=== PATIENT | female | born 1950 | race Caucasian/White ===

== ENCOUNTER 2017-12-26 15:20 | Inpatient (IN) | payer MEDICAID, OTHER ==
[~2017-12-26] VITALS: Ht 165.1 cm; Wt 92.1 kg
[2017-12-26 15:24] VITALS: BP 132/60
[2017-12-26] MEDS ORDERED: NACL 0.9% 1,000 ML IV SCH (16:38)
[2017-12-26] MEDS ORDERED: fentaNYL 0.05 MG/ML VIAL IVP ONE ×2 (16:40→18:45)
[2017-12-26] MEDS ORDERED: ONDANSETRON 4 MG/2 ML VIAL IVP ONE (16:40)
[2017-12-26 18:22] LABS: HEMOGLOBIN 8.3 g/dL (12.0-16.0); MEAN CORPUSCULAR HEMOGLOBIN 27 pg (27-31); MEAN CORPUSCULAR HGB CONC 32 g/dL (33-37); MEAN CORPUSCULAR VOLUME 84.5 fL (80-94); PLATELET COUNT (AUTO) 48 K/uL (140-450); RED BLOOD CELL COUNT(AUTO) 3.08 MIL/uL (4.20-5.40); RED CELL DISTRIBUTION WIDTH 19.8 % (11.6-13.7)
[2017-12-26] MEDS ORDERED: SYN.1 PO (18:22)
[2017-12-26] MEDS ORDERED: FERR325E14 PO (18:23)
[2017-12-26] MEDS ORDERED: ALEN70TA52 PO (18:24)
[2017-12-26] MEDS ORDERED: POTA25TE38 PO (18:28)
[2017-12-26] MEDS ORDERED: FURO-570 PO (18:28)
[2017-12-26] MEDS ORDERED: [UNRECOGNIZED DRUG - CODE] PO (18:29)
[2017-12-26] MEDS ORDERED: IBUP-2213 PO (18:31)
[2017-12-26 18:33] LABS: ALBUMIN 2.1 g/dL (3.4-5.0); ANION GAP 13.2 (8-16); CARBON DIOXIDE 19.2 mmol/L (21-32); CREATININE 0.5 mg/dL (0.6-1.3); TOTAL BILIRUBIN 0.3 mg/dL (0.0-1.0)
[2017-12-26 18:35] LABS: POTASSIUM 2.4 mmol/L (3.5-5.1)
[2017-12-26 18:40] LABS: PROTHROMBIN TIME 13.2 secs (10.8-13.4)
[2017-12-26] MEDS ORDERED: NACL 0.9% 1,000 ML IV ONE (18:40)
[2017-12-26] MEDS ORDERED: KCL 20 MEQ/WATER INJ PREMIX 100 ML IV ONE (18:40)
[2017-12-26] MEDS ORDERED: CALCIUM GLUCONATE 10% 1000 MG/10 ML VIAL IVP ONE (18:40)
[2017-12-26] MEDS ORDERED: MAG SULF 2000 MG/WATER PREMIX 50 ML IV ONE (18:40)
[2017-12-26 18:42] LABS: LYMPHOCYTES % (MANUAL) 11 % (20-46); MONOCYTES % (MANUAL) 6 % (5-12)
[2017-12-26 18:53] LABS: APPEARANCE,URINE CLOUDY (CLEAR); BILIRUBIN,URINE 1+ (NEGATIVE); BLOOD, URINE NEGATIVE (NEGATIVE); COLOR,URINE YELLOW (YELLOW); LEUKOCYTE ESTERASE ,URINE 2+ (NEGATIVE); NITRITE, URINE NEGATIVE (NEGATIVE); UGLUCOSE NEGATIVE (NEGATIVE)
[2017-12-26 19:09] LABS: RBC,URINE 0-5 (RARE) /HPF (0-5)
[2017-12-26 19:10] LABS: WBC,URINE 20-60 /HPF (0-5)
[2017-12-26] MEDS ORDERED: LEVOFLOXACIN 500 MG/D5W PREMIX 100 ML IV ONE (19:25)
[2017-12-26] MEDS ORDERED: ACETAMINOPHEN 325 MG TAB PO PRN (19:25)
[2017-12-26 19:57] LABS: FREE T4 (FREE THYROXINE) 1.03 ng/dL (0.76-1.46); MAGNESIUM 1.3 mg/dL (1.8-2.4); PHOSPHORUS 1.9 mg/dL (2.5-4.9); THYROID STIMULATING HORMONE 0.93 uIU/mL (0.34-3.74)
[2017-12-26 20:55] LABS: BARBITURATE, URINE NEG. ng/ml (NEG <=200); BENZODIAZEPINE, URINE NEG. ng/mL (NEG <=200); CANNABINOID, URINE NEG. ng/mL (NEG <=50); COCAINE, URINE NEG. ng/mL (NEG <=300); OPIATE, URINE NEG. ng/mL (NEG <=2000); PHENCYCLIDINE SCREEN,URINE NEG. ng/mL (NEG <=25)
[2017-12-26] MEDS ORDERED: LEVOFLOXACIN 250 MG/D5 PREMIX 50 ML IV SCH (21:40)
[2017-12-26 23:12] VITALS: BP 134/44
[2017-12-26] MEDS: DOCUSATE SODIUM 100 MG GELCAP PO SCH (23:14)
[2017-12-26] MEDS: MORPHINE SULFATE 4 MG/ML SYR IVP PRN (23:14)
[2017-12-26] MEDS: ONDANSETRON 4 MG/2 ML VIAL IVP PRN (23:14)
[2017-12-26] MEDS: SODIUM PHOS / POTASSIUM PHOS 1 PKT PDR PO SCH (23:24)
[2017-12-26] MEDS ORDERED: SODIUM PHOS / POTASSIUM PHOS 1 PKT PDR ONE (23:25)
[2017-12-26 23:51] LABS: CARBON DIOXIDE 26.7 mmol/L (21-32); CREATININE 0.8 mg/dL (0.6-1.3); POTASSIUM 3.7 mmol/L (3.5-5.1)
[2017-12-27] MEDS ORDERED: FERRIC GLUCONATE 125 MG in NACL 0.9% 100 ML IV SCH (02:20)
[2017-12-27] MEDS ORDERED: FERRIC GLUCONATE 62.5 MG/5 ML AMP IV ONE (04:09)
[2017-12-27 05:17] VITALS: BP 96/45
[2017-12-27] MEDS: LEVOTHYROXINE 0.1 MG TAB PO SCH (06:31)
[2017-12-27 08:00] VITALS: BP 108/58
[2017-12-27] MEDS: DOCUSATE SODIUM 100 MG GELCAP PO SCH ×3 (09:00→21:00)
[2017-12-27] MEDS ORDERED: FERROUS SULFATE 325 MG TABEC PO SCH (09:00)
[2017-12-27] MEDS: MULTIVIT/MIN/CA/FE/FA 1 TAB PO SCH (09:28)
[2017-12-27] MEDS: POTASSIUM CHLORIDE 10 MEQ TABER PO SCH (09:28)
[2017-12-27] MEDS: SODIUM PHOS / POTASSIUM PHOS 1 PKT PDR PO SCH (09:28)
[2017-12-27] MEDS: CALCIUM CARB/VIT-D 500 MG/200 IU 1 TAB PO SCH (09:29)
[2017-12-27] MEDS: FUROSEMIDE 40 MG TAB PO SCH (09:29)
[2017-12-27] MEDS: LACTOBACILLUS RHAMNOSUS GG 1 EACH CAP PO SCH (09:29)
[2017-12-27] MEDS: MORPHINE SULFATE 4 MG/ML SYR IVP PRN ×2 (10:58→18:40)
[2017-12-27 12:00] VITALS: BP 107/39
[2017-12-27] MEDS: ONDANSETRON 4 MG/2 ML VIAL IVP PRN ×2 (14:56→20:40)
[2017-12-27] MEDS: HYDROcodone/APAP 7.5/325 MG 1 TAB PO PRN ×2 (14:56→20:45)
[2017-12-27 16:00] VITALS: BP 119/65
[2017-12-27] MEDS: NACL 0.9% 1,000 ML IV SCH (18:27)
[2017-12-27 20:00] VITALS: BP 136/62
[2017-12-28] VITALS: BP 130/60
[2017-12-28 04:00] VITALS: BP 112/55
[2017-12-28] MEDS: LEVOTHYROXINE 0.1 MG TAB PO SCH (06:00)
[2017-12-28 08:00] VITALS: BP 107/45
[2017-12-28] MEDS: SODIUM PHOS / POTASSIUM PHOS 1 PKT PDR PO SCH (08:39)
[2017-12-28] MEDS: LACTOBACILLUS RHAMNOSUS GG 1 EACH CAP PO SCH (08:39)
[2017-12-28] MEDS: POTASSIUM CHLORIDE 10 MEQ TABER PO SCH (08:39)
[2017-12-28] MEDS: MULTIVIT/MIN/CA/FE/FA 1 TAB PO SCH (08:39)
[2017-12-28] MEDS: CALCIUM CARB/VIT-D 500 MG/200 IU 1 TAB PO SCH (08:40)
[2017-12-28] MEDS: FUROSEMIDE 40 MG TAB PO SCH (08:40)
[2017-12-28] MEDS: DOCUSATE SODIUM 100 MG GELCAP PO SCH ×2 (08:40→21:54)
[2017-12-28 09:18] LABS: TRANSFERRIN 233 mg/dL (200-370)
[2017-12-28 12:00] VITALS: BP 106/59
[2017-12-28] MEDS ORDERED: BENZOCAINE 20% 57 GM CAN MC PRN (13:50)
[2017-12-28] MEDS ORDERED: SODIUM PHOSPHATE 118 ML ENEM RC SCH (13:59)
[2017-12-28 15:08] LABS: FERRITIN 46 ng/mL (15-150); FOLIC ACID > 20.00 ng/mL (>3.0)
[2017-12-28 16:00] VITALS: BP 106/59
[2017-12-28] MEDS: SENNA 8.6 MG TAB PO SCH (17:00)
[2017-12-28] MEDS: NACL 0.9% 1,000 ML IV SCH (18:15)
[2017-12-28 20:00] VITALS: BP 113/53
[2017-12-29] VITALS: BP 104/44
[2017-12-29 04:00] VITALS: BP 133/54
[2017-12-29] MEDS: NACL 0.9% 1,000 ML IV SCH (05:06)
[2017-12-29] MEDS: LEVOTHYROXINE 0.1 MG TAB PO SCH (06:07)
[2017-12-29 06:43] LABS: BASOPHILS % (AUTO) 0.8 % (0.0-2.0); EOSINOPHILS # (AUTO) 0.1 K/uL (0-0.4); EOSINOPHILS % (AUTO) 2.9 % (0.0-4.0); HEMATOCRIT 31.1 % (36-48); HEMOGLOBIN 10.1 g/dL (12.0-16.0); LYMPHOCYTES # (AUTO) 0.8 K/uL (2.5-16.5); LYMPHOCYTES % (AUTO) 26.7 % (20.5-51.1); MEAN CORPUSCULAR HEMOGLOBIN 27 pg (27-31); MEAN CORPUSCULAR HGB CONC 32 g/dL (33-37); MEAN CORPUSCULAR VOLUME 84.5 fL (80-94); MONOCYTES # (AUTO) 0.3 K/uL (0.8-1.0); MONOCYTES % (AUTO) 9.2 % (1.7-9.3); NEUTROPHILS # (AUTO) 1.7 K/uL (1.8-7.7); NEUTROPHILS % (AUTO) 60.4 % (42.2-75.2); RED BLOOD CELL COUNT(AUTO) 3.68 MIL/uL (4.20-5.40); RED CELL DISTRIBUTION WIDTH 18.8 % (11.6-13.7); WHITE BLOOD COUNT (AUTO) 2.8 K/uL (4.8-10.8)
[2017-12-29 06:47] LABS: PLATELET COUNT (AUTO) 65 K/uL (140-450)
[2017-12-29 07:27] LABS: ANION GAP 11.5 (8-16); CARBON DIOXIDE 26.3 mmol/L (21-32); CREATININE 0.8 mg/dL (0.6-1.3); POTASSIUM 3.8 mmol/L (3.5-5.1)
[2017-12-29 07:34] LABS: MAGNESIUM 1.7 mg/dL (1.8-2.4); PHOSPHORUS 2.2 mg/dL (2.5-4.9)
[2017-12-29 08:00] VITALS: BP 126/59
[2017-12-29] MEDS: LACTOBACILLUS RHAMNOSUS GG 1 EACH CAP PO SCH (09:00)
[2017-12-29] MEDS: POTASSIUM CHLORIDE 10 MEQ TABER PO SCH (09:00)
[2017-12-29] MEDS: MULTIVIT/MIN/CA/FE/FA 1 TAB PO SCH (09:00)
[2017-12-29] MEDS: FUROSEMIDE 40 MG TAB PO SCH (09:00)
[2017-12-29] MEDS: DOCUSATE SODIUM 100 MG GELCAP PO SCH (10:13)
[2017-12-29] MEDS: SENNA 8.6 MG TAB PO SCH (10:13)
[2017-12-29] MEDS: SODIUM PHOS / POTASSIUM PHOS 1 PKT PDR PO SCH (10:13)
[2017-12-29 12:00] VITALS: BP 121/37
[2017-12-29] MEDS ORDERED: SENNA 8.6 MG TAB PO SCH (21:00)
[2017-12-30] MEDS ORDERED: SPIRONOLACTONE 50 MG TAB PO SCH (09:00)
== END 2017-12-29 16:15 | disposition left against medical advice (07) | DRG 247 ==
LOC: MED 15:20 → MTU 19:30
PROVIDERS: ADMIT Student in an Organized Health Care Education/Training Program; ATTEND Student in an Organized Health Care Education/Training Program
DX: K56.609 Unspecified intestinal obstruction, unspecified as to partial versus complete obstruction (principal); N17.0 Acute kidney failure with tubular necrosis; E43 Unspecified severe protein-calorie malnutrition; D61.818 Other pancytopenia; C85.90 Non-Hodgkin lymphoma, unspecified, unspecified site; R18.8 Other ascites; Q61.9 Cystic kidney disease, unspecified; K76.6 Portal hypertension; K74.60 Unspecified cirrhosis of liver; E83.42 Hypomagnesemia; K56.7 Ileus, unspecified; R16.1 Splenomegaly, not elsewhere classified; N39.0 Urinary tract infection, site not specified; E87.6 Hypokalemia; E83.51 Hypocalcemia; E03.9 Hypothyroidism, unspecified; D63.8 Anemia in other chronic diseases classified elsewhere; Z68.33 Body mass index [BMI] 33.0-33.9, adult; E27.9 Disorder of adrenal gland, unspecified; Z53.21 Procedure and treatment not carried out due to patient leaving prior to being seen by health care provider
CPT/HCPCS: 36415; 71045; 74018; 74250; 80048; 80053; 80305; 81001; 82150; 82607; 82728; 82746; 83036; 83540; 83605; 83690; 83735; 83880; 84100; 84439; 84443; 84484; 85025; 85045; 85610; 85730; 87040; 87081; 87086; 93005; 96361; 96365; 96375; 97140; 99291; J0610; J1956; J2270; J2405; J2916; J3010; J3475; J3480; J7030; Q0092